=== PATIENT | female | born 1955 | race African-American/Black ===

== ENCOUNTER 2018-07-08 23:07 | Emergency (ER) | payer OTHER ==
[2018-07-08] MEDS ORDERED: ONDANSETRON HCL INJ/PF 4 MG/2 ML SDV IV ONE (23:32)
[2018-07-09 00:58] LABS: ABSOLUTE BASOPHILS # (AUTO) 0.1 10^3/uL (0.0-0.2); ABSOLUTE LYMPHOCYTES (AUTO) 0.9 10^3/uL (0.5-4.7); ABSOLUTE MONOCYTES (AUTO) 0.8 10^3/uL (0.1-1.4); ABSOLUTE NEUT (AUTO) 8.7 10^3/uL (1.7-8.2); BASOPHILS % (AUTO) 0.6 % (0-2); EOSINOPHILS % (AUTO) 0.2 % (0-6); HEMATOCRIT 25.7 % (36.0-47.0); HEMOGLOBIN 8.3 g/dL (12.0-15.5); LYMPHOCYTES % (AUTO) 8.7 % (13-45); MEAN CORPUSCULAR HGB CONC 32.1 g/dL (32.0-36.0); MEAN CORPUSCULAR VOLUME 84 fl (80-97); MONOCYTES % (AUTO) 7.9 % (3-13); PLATELET COUNT 510 10^3/uL (150-450); RED BLOOD COUNT 3.05 10^6/uL (3.72-5.28); SEGMENTED NEUTROPHILS % (AUTO) 82.6 % (42-78); TOTAL CELLS COUNTED % (AUTO) 100 %; WHITE BLOOD COUNT 10.5 10^3/uL (4.0-10.5)
[2018-07-09 01:20] LABS: ALANINE AMINOTRANSFERASE 27 U/L (9-52); ALBUMIN 3.7 g/dL (3.5-5.0); ALKALINE PHOSPHATASE 72 U/L (38-126); ANION GAP 17 (5-19); ASPARTATE AMINO TRANSFERASE 65 U/L (14-36); BILIRUBIN,DIRECT 0.3 mg/dL (0.0-0.4); BILIRUBIN,TOTAL 0.5 mg/dL (0.2-1.3); BLOOD UREA NITROGEN 12 mg/dL (7-20); CALCIUM 9.1 mg/dL (8.4-10.2); CARBON DIOXIDE 18 mmol/L (22-30); CHLORIDE 100 mmol/L (98-107); GLUCOSE 86 mg/dL (75-110); LIPASE 81.8 U/L (23-300); POTASSIUM 3.9 mmol/L (3.6-5.0); SODIUM 134.6 mmol/L (137-145)
--- NOTE | 2018-07-09 02:13 | RADIOLOGY REPORT (SQ) ---
EXAM DESCRIPTION: XR ABDOMEN SUPINE AND ERECT WITH CHEST (ABD ACUTE SERIES) COMPLETED DATE/TME: 07/09/2018 00:19 CLINICAL HISTORY: 63 years, Female, abdominal pain, vomiting COMPARISON: None. NUMBER OF VIEWS: TECHNIQUE: LIMITATIONS: None. FINDINGS: No evidence of bowel obstruction. No free air. There are multiple calcified phleboliths in the pelvis. The chest is unremarkable. IMPRESSION: No acute finding. copyright 2010 [employer]- All Rights Reserved
--- NOTE | 2018-07-09 02:36 | RADIOLOGY REPORT (SQ) ---
EXAM DESCRIPTION: CT ABDOMEN PELVIS WITH IV CONTRAST COMPLETED DATE/TME: 07/08/2018 23:32 CLINICAL HISTORY: 63 years Female, general pain, distention Comparison: None. Technique: IV contrast. Coronal and sagittal reformat. This exam was performed according to our departmental dose-optimization program, which includes automated exposure control, adjustment of the mA and/or kV according to patient size and/or use of iterative reconstruction technique. [facility]: Dose Right [facility]: CareDose [facility]: Dose Right [facility]: Teradose 4D [facility]: Pure Software LIMITATIONS: None Findings: 6.8 x 5.9 x 5.0 cm complex solid mass/collection of the right paracentral pelvis. 6.4 x 5.0 x 3.5 cm left paracentral pelvic cystic mass. 2.4 cm cystic mass at the superior aspect of the left paracentral urinary bladder wall. Severe diffuse sigmoid bowel wall thickening, Moderate ascites. Moderate inguinal lymphadenopathy is moderate on the right and mild on the left. Mild retroperitoneal lymphadenopathy. Indeterminate 3.3 cm right posterior hepatic lesion. Colonic diverticulosis. Multiple ventral midline hernia including a 6.7 cm supraumbilical hernia including bowel and ascites as well as a 4.7 cm periumbilical hernia including large bowel. No dilated bowel loops. Cholecystectomy. Uterus not discerned which may indicate prior hysterectomy. Inferior thorax, pancreas, spleen, adrenals, renal system, vasculature, and musculoskeleton appear otherwise unremarkable. IMPRESSION: 1. Multiple pelvic masses measuring up to 7.0 cm each, severe diffuse sigmoid bowel wall thickening, 3.3 cm right hepatic lesion, moderate ascites, moderate inguinal lymphadenopathy, and moderate retroperitoneal lymphadenopathy. Malignancy is of first consideration. 2. Multiple ventral bowel hernia. No dilated bowel.
--- NOTE | 2018-07-09 03:03 | ER Document Report ---
ED General - General TRAVEL OUTSIDE OF THE [place]. IN LAST 30 DAYS: No <MARILEE SUAREZ - Last Filed: 07/09/18 05:52> <CARSON GARZA - Last Filed: 07/09/18 13:10> - General Chief Complaint: Vomiting Stated Complaint: VOMITING Time Seen by Provider: 07/08/18 23:31 Notes: Patient 63-year-old female presents with complaint of abdominal distention and vomiting. Said it has been worsening over the last several days and today she was unable to hold down food or liquids and therefore came to the ER. She has history of ovarian cancer. She denies any blood in her stool. She denies previous history of ascites. She had surgeries over a year ago. She had chemotherapy and last chemotherapy was in August of last year. No other complaints at this time. (MARILEE SUAREZ) - Related Data Allergies/Adverse Reactions: No Known Allergies Allergy (Unverified 07/09/18 08:30) Past Medical History - Social History Smoking Status: Never Smoker Chew tobacco use (# tins/day): No Frequency of alcohol use: None Drug Abuse: None Family History: Reviewed & Not Pertinent Patient has suicidal ideation: No Patient has homicidal ideation: No Renal/ Medical History: Denies: Hx Peritoneal Dialysis Past Surgical History: Reports: Hx Breast Surgery - R lumpectomy, Hx Hysterectomy <MARILEE SUAREZ - Last Filed: 07/09/18 05:52> Review of Systems <MARILEE SUAREZ - Last Filed: 07/09/18 05:52> - Review of Systems Notes: My Normal Review Basic REVIEW OF SYSTEMS: CONSTITUTIONAL : Denies fever, chills, or sweats. Denies recent illness. RESPIRATORY: Denies cough, cold, or chest congestion. Denies shortness of breath, difficulty breathing, or wheezing. GASTROINTESTINAL: Abdominal pain. vomiting. GENITOURINARY: Denies difficulty urinating, painful urination, burning, frequency, or blood in urine. FEMALE GENITOURINARY: Denies vaginal bleeding, abnormal or irregular periods. LMP: Previous hysterectomy MUSCULOSKELETAL: Denies neck or back pain or joint pain or swelling. SKIN: Denies rash or skin lesions. NEUROLOGICAL: Denies altered mental status or loss of consciousness. Denies headache. Denies weakness or paralysis or loss of use of either side. Denies problems with gait or speech. Denies sensory or motor loss. ALL OTHER SYSTEMS REVIEWED AND NEGATIVE. (MARILEE SUAREZ) Physical Exam <MARILEE SUAREZ - Last Filed: 07/09/18 05:52> - Vital signs Vitals: Temp Pulse Resp BP Pulse Ox 98.4 F 133 H 18 119/70 97 07/08/18 23:32 07/08/18 23:32 07/08/18 23:32 07/08/18 23:32 07/08/18 23:32 - Notes Notes: General Appearance: Well nourished, alert, cooperative, no acute distress, no obvious discomfort. Vitals: reviewed, See vital signs table. Head: no swelling or tenderness to the head Eyes: PERRL, EOMI, Conjuctiva clear Mouth: No decreasd moisture Lungs: No wheezing, No rales, No rhonci, No accessory muscle use, good air exchange bilaterally. Heart: Normal rate, Regular rythm, No murmur, no rub Abdomen: Normal BS, soft, No rigidity, obviously very distended abdomen. Mild pain to palpation diffusely. No guarding. Extremities: strength 5/5 in all extremities, good pulses in all extremities, no swelling or tenderness in the extremities, no edema. Skin: warm, dry, appropriate color, no rash Neuro: speech clear, oriented x 3, normal affect, responds appropriately to questions. (MARILEE SUAREZ) Course - Laboratory Result Diagrams: 07/09/18 00:40 07/09/18 00:40 <MARILEE SUAREZ - Last Filed: 07/09/18 05:52> - Laboratory Result Diagrams: 07/09/18 00:40 07/09/18 00:40 <CARSON GARZA - Last Filed: 07/09/18 13:10> - Re-evaluation Re-evalutation: 07/09/18 03:[address] scan shows severe diffuse sigmoid bowel wall thickening. Does have some acidosis on chemistry panel therefore ordered lactic acid. She does have multiple large pelvic masses. She does not read as her having a bowel obstruction however she still very dilated has had intractable vomiting therefore I think that important I discussed this with her surgical oncologist. I have called [facility] and I am waiting to hear back from whoever is covering for surgical oncology. 07/09/18 04:[address] I [address] speak with [address]. Neely at [facility]. She is familiar with the patient. I did go over the CT scan findings. She says that this is likely all related to the ascites from her cancer. She recommends paracentesis. That the patient is able to eat and drink and she is feeling improved after paracentesis and she can be discharged home with follow-up with him in the office. She says the patient still feels unwell and is unable to eat and drink after paracentesis in the call them back and they will place her on a wait list for transfer. Dr. Neely says the inflammation with the sigmoid colon is related to the chemotherapy. She said this is not a new finding. 07/09/18 04:39 07/09/18 05:00 I did speak with Omid, agency sales management assistant, who said they would perform the paracentesis in the morning. 07/09/18 05:52 Patient did vomit. She vomited a large amount of yellowish gastric acid. Patient says she is now feeling better from a nausea standpoint being that she vomited. (MARILEE SUAREZ) 07/09/18 13:09 Discussed patient's case with [place] at the paracentesis patient stating feeling much better and wishes to go home. Laboratory results not show any signs of SBP. Dr. Neely at [facility] agrees. Will send patient home with Zofran and Phenergan. Slightly tachycardic still however both patient and Dr. Hutton states this is normal. Patient is able tolerate p.o. prior to dischargel (CARSON GARZA) - Vital Signs Vital signs: Temp Pulse Resp BP Pulse Ox 98.2 F 119 H 17 130/71 H 99 07/09/18 03:41 07/09/18 03:41 07/09/18 10:42 07/09/18 10:42 07/09/18 10:42 - Laboratory Laboratory results interpreted by me: 07/09/18 07/09/18 00:40 00:40 RBC 3.05 L Hgb 8.3 L Hct 25.7 L RDW 18.0 H Plt Count 510 H Seg Neutrophils % 82.6 H Lymphocytes % 8.7 L Absolute Neutrophils 8.7 H Sodium 134.6 L Carbon Dioxide 18 L AST 65 H Discharge <MARILEE SUAREZ - Last Filed: 07/09/18 05:52> <CARSON GARZA - Last Filed: 07/09/18 13:10> - Discharge Clinical Impression: Abdominal pain Qualifiers: Abdominal location: unspecified location Qualified Code(s): R10.9 - Unspecified abdominal pain Vomiting Qualifiers: Vomiting type: unspecified Vomiting Intractability: intractable Nausea presence: with nausea Qualified Code(s): R11.2 - Nausea with vomiting, unspecified Ascites Qualifiers: Ascites type: malignant Qualified Code(s): R18.0 - Malignant ascites Instructions: Vomiting ([facility]) Additional Instructions: I discussed your results with your physician at [place] at this time I do feel that you are safe to be discharged home please return to ER for any worsening of your symptoms he can take either the Zofran or the Phenergan as needed for nausea and vomiting. If you feel yourself getting constipated I would recommend using [id number] MiraLAX or stool softener Prescriptions: Ondansetron [Zofran Odt 4 mg Tablet] 1 - 2 tab PO Q4H PRN #30 tab.rapdis PRN Reason: For Nausea/Vomiting Promethazine HCl [Phenergan 25 mg Tablet] 25 mg PO Q6 #30 tablet
[2018-07-09] MEDS ORDERED: ONDANSETRON HCL INJ/PF 4 MG/2 ML SDV IV ONE (03:26)
[2018-07-09] MEDS ORDERED: NORMAL SALINE 1000 ML 1,000 ML IV ONE (03:28)
[2018-07-09 03:39] LABS: INTERNATIONAL RATION (INR) 1.06; PARTIAL THROMBOPLASTIN TIME 34.4 SEC (23.5-35.8); PROTHROMBIN TIME 14.3 SEC (11.4-15.4)
[2018-07-09] MEDS ORDERED: RINGERS SOLUTION,LACTATED 1,000 ML IV ONE (05:53)
--- NOTE | 2018-07-09 10:58 | RADIOLOGY REPORT (SQ) ---
EXAM DESCRIPTION: U/S ABD PARACENTESIS COMPLETED DATE/TIME: 07/09/2018 10:41 am REASON FOR STUDY: ascites COMPARISON CT abdomen and pelvis dated 07/09/2018 LIMITATIONS: None. PROCEDURE: After obtaining informed consent, the patient was brought to the ultrasound suite. The p rocedure was performed with the patient on a gurney. Ultrasound was used to identify a prominent poc ket of ascites in the left lower quadrant. An appropriate access site was selected. The patient was prepped and draped in usual sterile fashion. The access site was anesthetized with 10 mL 1% lidoca ine. A [id number]-Rfujamxa needle was advanced into the fluid. After aspiration of fluid the needle, th e catheter was advanced off the needle into the fluid. A total of 4,450 mL of clear, straw-colored f luid was removed. The patient tolerated the procedure well left the department in satisfactory condit ion. IMPRESSION: Successful ultrasound-guided paracentesis COMMENT: Patient medication list reviewed: Yes- Quality ID# [id number]:Eligible professional attests to doc umenting in the medical record they obtained, updated, or reviewed the patient's current medications. TECHNICAL DOCUMENTATION: JOB ID: [id number] [employer] All Rights Reserved Reading location - IP/workstation name: [email or web address]
[2018-07-09 11:20] LABS: FLUID COLOR YELLOW; FLUID TYPE PERITONEAL
[2018-07-09 11:21] LABS: FLUID APPEARANCE SLIGHTLY HAZY; FLUID VISCOSITY LIQUID
[2018-07-09 11:37] LABS: FLUID SOURCE ABDOMEN
[2018-07-09] MEDS ORDERED: ONDANSETRON ODT 4 MG TAB (6 TAB/ER DISP) PO PRN (12:53)
[2018-07-09 13:25] VITALS: BP 130/67
== END 2018-07-09 13:24 | disposition home or self-care (01) ==
LOC: ER 23:07
DX: R10.9 Unspecified abdominal pain (principal); R11.10 Vomiting, unspecified; R14.0 Abdominal distension (gaseous); R18.0 Malignant ascites; Z90.710 Acquired absence of both cervix and uterus
CPT/HCPCS: 96376; 99284; 96361; 96374; 36415; 83605; 83690; 85025; 85610; 85730; 89050; 80053; 88162; 88342 ×2; 88341 ×2; 88305 ×2; 88313 ×2; 74022; 49083; 74177; J2405; J7030; J7120

== ENCOUNTER 2018-07-29 05:58 | Emergency (ER) | payer OTHER ==
--- NOTE | 2018-07-29 07:24 | ER Document Report ---
ED General - General Chief Complaint: Abdominal Swelling Stated Complaint: ABDOMINAL PAIN Time Seen by Provider: 07/29/18 06:22 TRAVEL OUTSIDE OF THE [place] IN LAST 30 DAYS: No - HPI Notes: Patient is a 63-year-old female that presents to the emergency department for chief complaint of abdominal distention and pain. Patient has ovarian cancer and has recently been requiring paracentesis for ascites. She states that her last paracentesis was on 07/15/18 and they drained 1.5 L. She states since then she has had increasing abdominal pain and distention. She states is not as bad as the first time she had 4 L drained off. She reports some dyspnea with exertion but at rest she feels she is breathing normally. She denies any fever, chills, nausea, vomiting or diarrhea. She states that the pain in her abdomen is a tightness that is constant without aggravating or relieving factors. Patient states that her oncologist told her she will require further paracentesis but she was not sure how to go about getting that set up which is why she came in the emergency room today. Past Medical History: Ovarian cancer Past Surgical History: Hysterectomy, lumpectomy Social History: Denies tobacco and alcohol use Family History: Reviewed and noncontributory for presenting illness Allergies: Reviewed, see documented allergy list. REVIEW OF SYSTEMS: CONSTITUTIONAL : No fever No chills No diaphoresis No recent illness EENT: No vision changes No congestion No sore throat CARDIOVASCULAR: No chest pain No palpitations RESPIRATORY: No shortness of breath No cough No difficulty breathing GASTROINTESTINAL: abdominal pain No nausea No vomiting No diarrhea GENITOURINARY: No dysuria No hematuria No difficulty urinating MUSCULOSKELETAL: No back pain No leg pain No arm pain SKIN: No rashes No lesions LYMPHATIC: No swollen, enlarged glands. NEUROLOGICAL: No lightheadedness No headache No weakness No paresthesias PSYCHIATRIC: No anxiety No depression PHYSICAL EXAMINATION: Vital signs reviewed, nursing noted reviewed. GENERAL: Well-appearing, well-nourished and in no acute distress. HEAD: Atraumatic, normocephalic. EYES: Eyes appear normal, extraocular movements intact, sclera anicteric, conjunctiva are normal. ENT: nares patent, oropharynx clear without exudates. Moist mucous membranes. NECK: Normal range of motion, supple without lymphadenopathy LUNGS: Breath sounds clear to auscultation bilaterally and equal. No wheezes rales or rhonchi. HEART: Regular rate and rhythm without murmurs ABDOMEN: Distended, positive fluid wave, soft, mild diffuse tenderness, normoactive bowel sounds. No rebound, guarding, or rigidity. No masses appreciated. EXTREMITIES: Nontender, good range of motion, no pitting or edema. NEUROLOGICAL: No focal neurological deficits. Moves all extremities spontaneously Motor and sensory grossly intact on exam. PSYCH: Normal mood, normal affect. SKIN: Warm, Dry, normal turgor, no rashes or lesions noted on exposed skin - Related Data Allergies/Adverse Reactions: No Known Allergies Allergy (Unverified 07/09/18 08:30) Past Medical History - Social History Smoking Status: Unknown if Ever Smoked Family History: Reviewed & Not Pertinent Patient has suicidal ideation: No Patient has homicidal ideation: No Renal/ Medical History: Denies: Hx Peritoneal Dialysis Past Surgical History: Reports: Hx Breast Surgery - R lumpectomy, Hx Hysterectomy Physical Exam - Vital signs Vitals: Temp Pulse Resp BP Pulse Ox 97.9 F 133 H 16 133/74 H 96 07/29/18 06:03 07/29/18 06:03 07/29/18 06:03 07/29/18 06:03 07/29/18 06:03 Course - Re-evaluation Re-evalutation: 07/29/18 07:24 Vitals reviewed. Nursing notes reviewed. Patient is resting comfortably and in no acute respiratory distress. She does have a moderate amount of abdominal distention consistent with her ascites from ovarian cancer. Patient has refused blood draw from nursing staff which is delaying her management. She is requesting only ultrasound blood draws. 07/29/18 11:35 Patient's lab work was finally resulted. She has a hemoglobin of 7.9. Chart review shows hemoglobin of 8.3 last month. Patient's care was discussed with Celina Lama NP working with patient's oncologist Dr. Susanna Monterroso at [facility]. They do recommend transfusing 2 units packed red blood cells. They agree with paracentesis today and discharge home. She has an appointment scheduled with them on Sunday which she will keep. Celina edwards states they will work on getting a more routine schedule for paracentesis and they will be having a palliative care consultation at that time as well. Patient is in agreement with plan of care. She is currently at ultrasound getting paracentesis. Plan to transfuse when she returns to the emergency room and discharge home if she Laboratory 07/29/18 07/29/18 07/29/18 07:56 07:56 07:56 WBC Cancelled RBC Cancelled Hgb Cancelled Hct Cancelled MCV Cancelled MCH Cancelled MCHC Cancelled RDW Cancelled Plt Count Cancelled Seg Neutrophils % Cancelled Lymphocytes % Cancelled Monocytes % Cancelled Eosinophils % Cancelled Basophils % Cancelled Absolute Neutrophils Cancelled Absolute Lymphocytes Cancelled Absolute Monocytes Cancelled Absolute Eosinophils Cancelled Absolute Basophils Cancelled Platelet Estimate Cancelled PT 13.7 INR 1.00 APTT 33.6 Sodium 138.4 Potassium 4.3 Chloride 109 H Carbon Dioxide 23 Anion Gap 6 BUN 10 Creatinine 0.75 Est GFR ( Amer) > 60 Est GFR (Non-Af Amer) > 60 Glucose 100 Calcium 9.1 Total Bilirubin 0.5 Direct Bilirubin 0.3 Neonat Total Bilirubin Not Reportable Neonat Direct Bilirubin Not Reportable Neonat Indirect Bili Not Reportable AST 38 H ALT 23 Alkaline Phosphatase 82 Total Protein 6.0 L Albumin 3.1 L Lipase 93.0 Slides for Path Review Cancelled 07/29/18 10:44 WBC 7.0 RBC 3.10 L Hgb 7.9 L Hct 24.8 L MCV 80 D MCH 25.3 L MCHC 31.7 L RDW 19.6 H Plt Count 368 Seg Neutrophils % 75.6 Lymphocytes % 16.0 Monocytes % 7.2 Eosinophils % 0.4 Basophils % 0.8 Absolute Neutrophils 5.3 Absolute Lymphocytes 1.1 Absolute Monocytes 0.5 Absolute Eosinophils 0.0 Absolute Basophils 0.1 Platelet Estimate PT INR APTT Sodium Potassium Chloride Carbon Dioxide Anion Gap BUN Creatinine Est GFR ( Amer) Est GFR (Non-Af Amer) Glucose Calcium Total Bilirubin Direct Bilirubin Neonat Total Bilirubin Neonat Direct Bilirubin Neonat Indirect Bili AST ALT Alkaline Phosphatase Total Protein Albumin Lipase Slides for Path Review Chest X-Ray 07/29/18 06:23 IMPRESSION: No acute cardiopulmonary findings. remains stable - Vital Signs Vital signs: Temp Pulse Resp BP Pulse Ox 97.9 F 133 H 21 H 120/52 L 96 07/29/18 06:03 07/29/18 06:03 07/29/18 09:20 07/29/18 09:08 07/29/18 09:20 - Laboratory Result Diagrams: 07/29/18 10:44 07/29/18 07:56 Laboratory results interpreted by me: 07/29/18 07/29/18 07:56 10:44 RBC 3.10 L Hgb 7.9 L Hct 24.8 L MCH 25.3 L MCHC 31.7 L RDW 19.6 H Chloride 109 H AST 38 H Total Protein 6.0 L Albumin 3.1 L Discharge - Discharge Clinical Impression: Anemia Qualifiers: Anemia type: other cause Other causes of anemia: other cause, not classified Qualified Code(s): D64.89 - Other specified anemias Ascites Qualifiers: Ascites type: malignant Qualified Code(s): R18.0 - Malignant ascites Condition: Stable Disposition: HOME, SELF-CARE Instructions: Anemia ([facility]) Additional Instructions: Please return to the emergency department if you have any worsening, or concern of your symptoms. Please return to the emergency department if you develop chest pain, difficulty breathing, severe abdominal pain, or ongoing vomiting. Please follow-up with your primary care physician in 2-3 days and any other recommended physicians. If prescribed, take all medications as directed. If you have any questions or concerns do not hesitate to return the emergency department for evaluation. Keep your appointment on Sunday with Dr. Monterroso. I did discuss her care today with her nurse practitioner and they are aware of your blood transfusion and paracentesis.
--- NOTE | 2018-07-29 07:32 | RADIOLOGY REPORT (SQ) ---
EXAM DESCRIPTION: XR CHEST 1 VIEW COMPLETED DATE/TME: 07/29/2018 06:23 CLINICAL HISTORY: 63 years Female, shortness of breath COMPARISON: None. NUMBER OF VIEWS/TECHNIQUE: 1/AP FINDINGS: Adequate lung volume, clear parenchyma, normal cardiac silhouette, and intact bony thorax. Right lateral thoracic/breast clips. IMPRESSION: No acute cardiopulmonary findings.
[2018-07-29 08:49] LABS: ALANINE AMINOTRANSFERASE 23 U/L (9-52); ALBUMIN 3.1 g/dL (3.5-5.0); ALKALINE PHOSPHATASE 82 U/L (38-126); ANION GAP 6 (5-19); ASPARTATE AMINO TRANSFERASE 38 U/L (14-36); BILIRUBIN,DIRECT 0.3 mg/dL (0.0-0.4); BILIRUBIN,TOTAL 0.5 mg/dL (0.2-1.3); BLOOD UREA NITROGEN 10 mg/dL (7-20); CALCIUM 9.1 mg/dL (8.4-10.2); CARBON DIOXIDE 23 mmol/L (22-30); CHLORIDE 109 mmol/L (98-107); GLUCOSE 100 mg/dL (75-110); POTASSIUM 4.3 mmol/L (3.6-5.0); SODIUM 138.4 mmol/L (137-145)
[2018-07-29 09:05] LABS: PROTHROMBIN TIME 13.7 SEC (11.4-15.4)
[2018-07-29 09:06] LABS: PARTIAL THROMBOPLASTIN TIME 33.6 SEC (23.5-35.8)
[2018-07-29 11:01] LABS: ABSOLUTE BASOPHILS # (AUTO) 0.1 10^3/uL (0.0-0.2); ABSOLUTE LYMPHOCYTES (AUTO) 1.1 10^3/uL (0.5-4.7); ABSOLUTE MONOCYTES (AUTO) 0.5 10^3/uL (0.1-1.4); ABSOLUTE NEUT (AUTO) 5.3 10^3/uL (1.7-8.2); BASOPHILS % (AUTO) 0.8 % (0-2); EOSINOPHILS % (AUTO) 0.4 % (0-6); HEMATOCRIT 24.8 % (36.0-47.0); MEAN CORPUSCULAR HEMOGLOBIN 25.3 pg (27.0-33.4); MEAN CORPUSCULAR HGB CONC 31.7 g/dL (32.0-36.0); MONOCYTES % (AUTO) 7.2 % (3-13); PLATELET COUNT 368 10^3/uL (150-450); RED CELL DISTRIBUTION WIDTH 19.6 % (11.5-14.0); SEGMENTED NEUTROPHILS % (AUTO) 75.6 % (42-78); TOTAL CELLS COUNTED % (AUTO) 100 %
[2018-07-29 11:06] LABS: MEAN CORPUSCULAR VOLUME 80 fl (80-97)
[2018-07-29 11:07] LABS: HEMOGLOBIN 7.9 g/dL (12.0-15.5)
[2018-07-29] MEDS ORDERED: NORMAL SALINE 250 ML IV PRN ×2 (11:31)
--- NOTE | 2018-07-29 15:22 | RADIOLOGY REPORT (SQ) ---
EXAM DESCRIPTION: U/S ABD PARACENTESIS COMPLETED DATE/TIME: 07/29/2018 12:49 pm REASON FOR STUDY: Ascites COMPARISON None. LIMITATIONS: None. PROCEDURE: After obtaining informed consent, the patient was brought to the ultrasound suite. The p rocedure was performed with the patient on a gurney. Ultrasound was used to identify a prominent poc ket of ascites in the left lower quadrant. An appropriate access site was selected. The patient was prepped and draped in usual sterile fashion. The access site was anesthetized with 10 mL 1% lidoca ine. A [id number] needle was advanced into the fluid. After aspiration of fluid the needle, th e catheter was advanced off the needle into the fluid. A total of 2,275 mL of serosanguineous fluid was removed. The patient tolerated the procedure well left the department in satisfactory condition. IMPRESSION: Successful ultrasound-guided paracentesis COMMENT: Patient medication list reviewed: Yes- Quality ID# [id number]:Eligible professional attests to doc umenting in the medical record they obtained, updated, or reviewed the patient's current medications. TECHNICAL DOCUMENTATION: JOB ID: [id number] [employer]- All Rights Reserved Reading location - IP/workstation name: [email or web address]
--- NOTE | 2018-07-29 20:04 | EKG REPORT ---
SEVERITY:- OTHERWISE NORMAL ECG - SINUS TACHYCARDIA : Confirmed by: Soledad Teixeira MD 29-Jul-2018 20:03:30
[2018-07-29 21:03] VITALS: BP 124/86
== END 2018-07-29 21:03 | disposition home or self-care (01) ==
LOC: ER 05:58
DX: R18.0 Malignant ascites (principal); D64.89 Other specified anemias; R10.9 Unspecified abdominal pain; C56.9 Malignant neoplasm of unspecified ovary; R06.00 Dyspnea, unspecified
CPT/HCPCS: 93005; 99284; 86900; 86901; 36415; 87040; 36430; 86850; 83690; 85025; 85610; 85730; 87077; 80053; 86920; 71045; 49083; 93010; P9016; 87186

== ENCOUNTER 2018-08-18 09:25 | Emergency (ER) | payer OTHER ==
--- NOTE | 2018-08-18 10:16 | ER Document Report ---
ED General - General Chief Complaint: Nausea/Vomiting Stated Complaint: VOMITING Time Seen by Provider: 08/18/18 09:50 Mode of Arrival: Ambulatory Information source: Patient, [facility] Records Notes: 63-year-old female patient with past history of ovarian cancer with carcinomatosis. She reports she has had nausea and vomiting for the past week. Her last good bowel movement was about 5 days ago. She did not get her chemotherapy done on 08/14/2018 due to her nausea and vomiting. Patient denies fevers. She does note that her abdomen feels like it is becoming more distended. She did speak with her provider at [facility] a few days ago, and they recommended adding milk of magnesia and prune juice to her daily MiraLAX. She did try this on Sunday, and vomited about 1 to 2 hours after drinking the juice and milk of magnesia. The patient originally presented here on 07/08/2018 and at that time stated she had never had paracentesis before. On 07/09/2018 she had 4,450 mL's removed. On 07/29/2018 she was seen again and had 2,275 mL's removed and was given 2 units of packed RBCs for worsening anemia. On 08/09/2018 she had an outpatient paracentesis done and had 2,150 mL was removed. TRAVEL OUTSIDE OF THE [place] IN LAST 30 DAYS: No - Related Data Allergies/Adverse Reactions: acetaminophen [From Vicodin] Allergy (Verified 08/18/18 09:27) hydrocodone [From Vicodin] Allergy (Verified 08/18/18 09:27) pegfilgrastim [From Neulasta] Allergy (Verified 08/18/18 09:27) silicone Allergy (Verified 08/18/18 09:27) Past Medical History - General Information source: Patient, [facility] Records - Social History Smoking Status: Never Smoker Cigarette use (# per day): No Chew tobacco use (# tins/day): No Smoking Education Provided: No Frequency of alcohol use: Rare Drug Abuse: Marijuana Occupation: Retired Lives with: Family Family History: Reviewed & Not Pertinent Patient has suicidal ideation: No Patient has homicidal ideation: No Malignancy Medical History: Reports: Hx Ovarian Cancer GI Medical History: Reports: None Past Surgical History: Reports: Hx Breast Surgery - R lumpectomy, Hx Hystere ctomy Review of Systems - Review of Systems Constitutional: No symptoms reported EENT: No symptoms reported Cardiovascular: No symptoms reported Respiratory: No symptoms reported Gastrointestinal: See HPI, Abdomen distended, Vomiting, Last bowel movement - 5 days ago. denies: Diarrhea Female Genitourinary: Post menopausal Musculoskeletal: No symptoms reported Skin: No symptoms reported Hematologic/Lymphatic: No symptoms reported Neurological/Psychological: No symptoms reported Physical Exam - Vital signs Vitals: Temp Pulse Resp BP Pulse Ox 97.5 F 132 H 24 H 120/58 L 96 08/18/18 09:35 08/18/18 09:35 08/18/18 09:35 08/18/18 09:35 08/18/18 09:35 Interpretation: Tachycardic - General General appearance: Appears well, Alert In distress: None - HEENT Head: Normocephalic, Atraumatic Eyes: Normal Pupils: PERRL Mouth/Lips: Other - Strong ketone odor on the patient's breath Neck: Normal - Respiratory Respiratory status: No respiratory distress Breath sounds: Normal - Cardiovascular Rhythm: Regular Heart sounds: Normal auscultation Murmur: No - Abdominal Distension: Distended, Fluid wave Bowel sounds: Normal Tenderness: Nontender - Back Back: Normal - Extremities General upper extremity: Normal inspection General lower extremity: Normal inspection - Neurological Neuro grossly intact: Yes - Psychological Associated symptoms: Normal affect, Normal mood - Skin Skin Temperature: Warm Skin Moisture: Dry Skin Color: Normal Course - Re-evaluation Re-evalutation: 08/18/18 14:50 Bedside ultrasound showed fluid collections in the left and right paracolic gutter regions. The left-sided collection was the largest. Patient states that is usually the left side that they get most the fluid from. Dr. Bridges did a paracentesis removing about 1,100 mL's of bloody fluid from the left abdomen. Patient states she feels much better able to breathe deeper. She will be discharged home with a bottle of mag citrate to drink to help get her bowels moving. - Vital Signs Vital signs: Temp Pulse Resp BP Pulse Ox 97.5 F 132 H 20 142/92 H 99 08/18/18 09:35 08/18/18 09:35 08/18/18 12:01 08/18/18 12:00 08/18/18 12:01 - Laboratory Result Diagrams: 08/18/18 10:30 08/18/18 10:30 Laboratory results interpreted by me: 08/18/18 08/18/18 08/18/18 10:30 10:30 12:55 Hgb 11.4 L MCV 78 L MCH 24.8 L MCHC 31.6 L RDW 19.4 H Plt Count 568 H Seg Neutrophils % 81.6 H Lymphocytes % 9.5 L Sodium 132.4 L Chloride 90 L Direct Bilirubin 0.6 H Creatine Kinase < 20 L Urine Protein 30 H Urine Ketones 80 H Urine Bilirubin SMALL H Urine Urobilinogen 4.0 H - Diagnostic Test Radiology reviewed: Image reviewed, Reports reviewed - AAS-shows ascites and stool in the colon. There is no obstruction. - Consults Dr. Bridges Time consulted: 13:00 Consulted provider: will come to ER - Will come see the patient and do an ultrasound-guided paracentesis. Discharge - Discharge Clinical Impression: Peritoneal carcinomatosis, Dehydration Ovarian cancer Qualifiers: Laterality: unspecified laterality Qualified Code(s): C56.9 - Malignant neoplasm of unspecified ovary Nausea and vomiting Qualifiers: Vomiting type: unspecified Vomiting Intractability: non-intractable Qualified Code(s): R11.2 - Nausea with vomiting, unspecified Constipation Qualifiers: Constipation type: unspecified constipation type Qualified Code(s): K59.00 - Constipation, unspecified Condition: Stable Disposition: HOME, SELF-CARE Additional Instructions: Drink the magnesium citrate when you get home. You can drink it all at once, or sip on it over the next few hours. Follow-up with your doctor if you are not improving. RETURN TO THE EMERGENCY ROOM IF ANY NEW OR WORSENING SYMPTOMS.
[2018-08-18] MEDS ORDERED: DEXTROSE 5%-LACTATED RINGERS 1,000 ML IV ONE (10:18)
[2018-08-18 10:46] LABS: ABSOLUTE LYMPHOCYTES (AUTO) 0.8 10^3/uL (0.5-4.7); ABSOLUTE MONOCYTES (AUTO) 0.8 10^3/uL (0.1-1.4); ABSOLUTE NEUT (AUTO) 7.3 10^3/uL (1.7-8.2); BASOPHILS % (AUTO) 0.1 % (0-2); EOSINOPHILS % (AUTO) 0.1 % (0-6); HEMOGLOBIN 11.4 g/dL (12.0-15.5); LYMPHOCYTES % (AUTO) 9.5 % (13-45); MEAN CORPUSCULAR HEMOGLOBIN 24.8 pg (27.0-33.4); MEAN CORPUSCULAR HGB CONC 31.6 g/dL (32.0-36.0); MEAN CORPUSCULAR VOLUME 78 fl (80-97); MONOCYTES % (AUTO) 8.7 % (3-13); PLATELET COUNT 568 10^3/uL (150-450); RED BLOOD COUNT 4.59 10^6/uL (3.72-5.28); RED CELL DISTRIBUTION WIDTH 19.4 % (11.5-14.0); SEGMENTED NEUTROPHILS % (AUTO) 81.6 % (42-78); TOTAL CELLS COUNTED % (AUTO) 100 %
--- NOTE | 2018-08-18 10:59 | RADIOLOGY REPORT (SQ) ---
EXAM DESCRIPTION: ACUTE ABDOMEN SERIES COMPLETED DATE/TIME: 08/18/2018 10:47 am REASON FOR STUDY: Nausea and vomiting, ascites, carcinomatosis COMPARISON: 07/09/2018 NUMBER OF VIEWS: Three views. TECHNIQUE: Frontal chest, supine abdomen and upright/decubitus abdomen radiographic images acquired. LIMITATIONS: None. FINDINGS: CHEST: Lungs clear of infiltrates. FREE AIR: None. No abnormal gas collections. BOWEL GAS PATTERN: Nonobstructive pattern. No dilated loops or air fluid levels. CALCIFICATIONS: No suspicious calcifications. HARDWARE: None in the abdomen. SOFT TISSUES: Generalize centralization of bowel loops strongly suspicious for ascites. BONES: No acute fracture. No worrisome bone lesions. OTHER: No other significant finding. IMPRESSION: No evidence for obstruction. Ascites. TECHNICAL DOCUMENTATION: JOB ID: [id number] [employer]- All Rights Reserved Reading location - IP/workstation name: [email or web address]
[2018-08-18 11:05] LABS: ALANINE AMINOTRANSFERASE 27 U/L (9-52); ALBUMIN 3.8 g/dL (3.5-5.0); ALKALINE PHOSPHATASE 98 U/L (38-126); ANION GAP 19 (5-19); ASPARTATE AMINO TRANSFERASE 31 U/L (14-36); BILIRUBIN,DIRECT 0.6 mg/dL (0.0-0.4); BILIRUBIN,TOTAL 0.8 mg/dL (0.2-1.3); BLOOD UREA NITROGEN 16 mg/dL (7-20); CALCIUM 9.9 mg/dL (8.4-10.2); CARBON DIOXIDE 23 mmol/L (22-30); CHLORIDE 90 mmol/L (98-107); GLUCOSE 89 mg/dL (75-110); POTASSIUM 4.3 mmol/L (3.6-5.0); SODIUM 132.4 mmol/L (137-145); TOTAL PROTEIN 6.9 g/dL (6.3-8.2)
[2018-08-18 11:07] LABS: CREATINE KINASE < 20 U/L (30-135)
[2018-08-18 13:21] LABS: APPEARANCE,URINE SLIGHTLY-CLOUDY; BILIRUBIN,URINE SMALL (NEGATIVE); GLUCOSE, URINE NEGATIVE (NEGATIVE); KETONES,URINE 80 mg/dL (NEGATIVE); LEUKOCYTE ESTERASE,URINE NEGATIVE (NEGATIVE); NITRITE,URINE NEGATIVE (NEGATIVE); PROTEIN,URINE 30 mg/dL (NEGATIVE)
[2018-08-18 13:23] LABS: COLOR,URINE YELLOW
[2018-08-18] MEDS ORDERED: MAGNESIUM CITRATE 296 ML BOTTLE PO ONE (14:54)
--- NOTE | 2018-08-18 15:08 | PDOC CONSULTATION ---
Consultation Consult Date: 08/18/18 Consult reason:: Ovarian cancer, malignant ascites. History of Present Illness History of Present Illness: JUICE PEREIRA is a 63 year old female seen in consultation at the request of the emergency room physician. Patient has a history of ovarian cancer with malignant ascites. The patient has undergone paracentesis approximately 4 times in the past. On average, they remove approximately 2 L of fluid each time. The patient reports a 2 to 3-day history of abdominal swelling, nausea, vomiting, and malaise. The patient vomited several times. She does find it difficult to take a large breath. Nothing makes her pain and nausea better. Nothing makes it worse. Past Medical History Cardiac Medical History: Denies: Myocardial Infarction, Hypertension Pulmonary Medical History: Denies: Asthma, Bronchitis, Chronic Obstructive Pulmonary Disease (COPD), Pneumonia Neurological Medical History: Denies: Seizures Malignancy Medical History: Reports: Ovarian Cancer GI Medical History: Reports: None Musculoskeltal Medical History: Denies: Arthritis Hematology: Reports: Anemia - 2 UNITS ON 07/29/18 Past Surgical History Past Surgical History: Reports: Hysterectomy, Other - Paracentesis Social History Lives with: Family Smoking Status: Never Smoker Family History Family History: Reviewed & Not Pertinent Parental Family History Reviewed: Yes Children Family History Reviewed: Yes Sibling(s) Family History Reviewed.: Yes Medication/Allergy Home Medications: No Home Medications 08/09/18 Allergies/Adverse Reactions: acetaminophen [From Vicodin] Allergy (Verified 08/18/18 09:27) hydrocodone [From Vicodin] Allergy (Verified 08/18/18 09:27) pegfilgrastim [From Neulasta] Allergy (Verified 08/18/18 09:27) silicone Allergy (Verified 08/18/18 09:27) Review of Systems Constitutional: PRESENT: anorexia, fatigue. ABSENT: chills, fever(s), weakness Eyes: ABSENT: visual disturbances Ears: ABSENT: hearing changes Nose, Mouth, and Throat: ABSENT: mouth pain, sore throat Cardiovascular: ABSENT: chest pain Respiratory: ABSENT: cough Gastrointestinal: PRESENT: abdominal pain, bloating, nausea, vomiting Genitourinary: ABSENT: dysuria Musculoskeletal: ABSENT: back pain Integumentary: ABSENT: pruritus, rash Neurological: ABSENT: confusion, convulsions Psychiatric: ABSENT: anxiety, depression Hematologic/Lymphatic: ABSENT: easy bleeding, easy bruising Physical Exam Vital Signs: Temp Pulse Resp BP Pulse Ox 97.5 F 132 H 20 142/92 H 99 08/18/18 09:35 08/18/18 09:35 08/18/18 12:01 08/18/18 12:00 08/18/18 12:01 Intake & Output 08/17/18 08/18/18 08/19/18 06:59 06:59 06:59 Weight 68.7 kg General appearance: PRESENT: cooperative Head exam: PRESENT: atraumatic, normocephalic Eye exam: PRESENT: EOMI, PERRLA. ABSENT: scleral icterus Mouth exam: PRESENT: moist, neck supple Teeth exam: ABSENT: poor dentation Neck exam: ABSENT: meningismus, tenderness, thyromegaly, tracheal deviation Respiratory exam: PRESENT: clear to auscultation nicolas, unlabored. ABSENT: chest wall tenderness, tachypnea, wheezes Cardiovascular exam: PRESENT: RRR Pulses: PRESENT: normal radial pulses Vascular exam: PRESENT: normal capillary refill GI/Abdominal exam: PRESENT: distended, soft. ABSENT: guarding, rigid, tenderness Rectal exam: PRESENT: deferred Extremities exam: ABSENT: clubbing Musculoskeletal exam: ABSENT: deformity Neurological exam: PRESENT: alert, awake, oriented to person, oriented to place, oriented to time, oriented to situation, CN II-XII grossly intact Psychiatric exam: ABSENT: agitated, anxious, depressed Focused psych exam: ABSENT: delusional Skin exam: ABSENT: cyanosis, erythema, jaundice Results Laboratory Results: 08/18/18 10:30 08/18/18 10:30 08/18/18 08/18/18 08/18/18 10:30 10:30 10:30 WBC 9.0 RBC 4.59 Hgb 11.4 L Hct 36.0 MCV 78 L MCH 24.8 L MCHC 31.6 L RDW 19.4 H Plt Count 568 H Seg Neutrophils % 81.6 H Lymphocytes % 9.5 L Monocytes % 8.7 Eosinophils % 0.1 Basophils % 0.1 Absolute Neutrophils 7.3 Absolute Lymphocytes 0.8 Absolute Monocytes 0.8 Absolute Eosinophils 0.0 Absolute Basophils 0.0 Sodium 132.4 L Potassium 4.3 Chloride 90 L Carbon Dioxide 23 Anion Gap 19 BUN 16 Creatinine 0.81 Est GFR ( Amer) > 60 Est GFR (Non-Af Amer) > 60 Glucose 89 Lactic Acid 1.2 Calcium 9.9 Magnesium 2.0 Total Bilirubin 0.8 AST 31 ALT 27 Alkaline Phosphatase 98 Total Protein 6.9 Albumin 3.8 Urine Color Urine Appearance Urine pH Ur Specific [place] Urine Protein Urine Glucose (UA) Urine Ketones Urine Blood Urine Nitrite Ur Leukocyte Esterase Urine WBC (Auto) Urine RBC (Auto) 08/18/18 12:55 WBC RBC Hgb Hct MCV MCH MCHC RDW Plt Count Seg Neutrophils % Lymphocytes % Monocytes % Eosinophils % Basophils % Absolute Neutrophils Absolute Lymphocytes Absolute Monocytes Absolute Eosinophils Absolute Basophils Sodium Potassium Chloride Carbon Dioxide Anion Gap BUN Creatinine Est GFR ( Amer) Est GFR (Non-Af Amer) Glucose Lactic Acid Calcium Magnesium Total Bilirubin AST ALT Alkaline Phosphatase Total Protein Albumin Urine Color YELLOW Urine Appearance SLIGHTLY-CLOUDY Urine pH 5.0 Ur Specific [place] 1.030 Urine Protein 30 H Urine Glucose (UA) NEGATIVE Urine Ketones 80 H Urine Blood NEGATIVE Urine Nitrite NEGATIVE Ur Leukocyte Esterase NEGATIVE Urine WBC (Auto) 5 Urine RBC (Auto) 34 08/18/18 08/18/18 10:30 10:30 Creatine Kinase < 20 L Troponin I < 0.012 Impressions: Acute Abdomen Series 08/18/18 10:09 IMPRESSION: No evidence for obstruction. Ascites. Assessment & Plan - Diagnosis (2) Ovarian cancer Qualifiers: Laterality: unspecified laterality Qualified Code(s): C56.9 - Malignant neoplasm of unspecified ovary Is this a current diagnosis for this admission?: Yes - Plan Summary Plan Summary: This is a 63-year-old female with malignant ascites due to ovarian cancer. The patient reports a several day history of increasing abdominal girth, nausea, vomiting, and a feeling of fullness. I have reviewed her abdominal x-rays and laboratory reports. She has no sign of obvious obstruction. She does have some stool in the right colon, consistent with constipation. The patient has experienced symptoms like this before. She has had paracentesis performed 4 times in the past, with good results. The patient is requesting paracentesis today at the bedside to help relieve her symptoms. I have agreed to this. Risks/benefits discussed, informed consent obtained, and all questions answered.
--- NOTE | 2018-08-18 15:12 | Operative Report ---
Nonrecallable Operative Report DATE OF SURGERY: 08/18/18 PREOPERATIVE DIAGNOSIS: Malignant ascites POSTOPERATIVE DIAGNOSIS: Same as above OPERATION: Ultrasound-guided paracentesis in the left abdomen SURGEON: IRMA MOULTON ANESTHESIA: Local TISSUE REMOVED OR ALTERED: 1.1 L of blood-tinged ascites COMPLICATIONS: None apparent ESTIMATED BLOOD LOSS: Minimal PROCEDURE: Drains/implants: None. Procedure in detail: After informed consent was obtained from the patient, she was sat in the upright position in the emergency department. The abdomen was then inspected with an ultrasound. The ascites appeared to be contained within the left lateral abdomen. Secondary to this, the left abdominal wall was prepped and draped in a normal sterile fashion. 1% lidocaine was used to infiltrate the skin of the left lateral abdominal wall. Under direct ultrasonic guidance, the Veress needle was inserted into the abdominal cavity. The catheter was slid over the needle, into the peritoneal space. Blood-tinged ascites was then removed from the abdomen. After 1.1 L were removed, no other ascites could be aspirated. The ultrasound was used to confirm that there was no more fluid within the abdominal cavity. Once this was completed, the catheter was removed, a dressing was placed, and the procedure was concluded. All sponge, instrument, and needle counts were correct. Condition: Stable.
[2018-08-18 15:31] VITALS: BP 141/95
== END 2018-08-18 15:45 | disposition home or self-care (01) ==
LOC: ER 09:25
PROC: 0W9G3ZZ Drainage of Peritoneal Cavity, Percutaneous Approach (ICD-10-PCS; principal; 2018-08-18)
DX: C80.0 Disseminated malignant neoplasm, unspecified (principal); C56.9 Malignant neoplasm of unspecified ovary; E86.0 Dehydration; R11.2 Nausea with vomiting, unspecified; K59.00 Constipation, unspecified; Z79.899 Other long term (current) drug therapy; Z98.890 Other specified postprocedural states
CPT/HCPCS: 99284; 96360; 96361; 36415; 82550; 83735; 85025; 80053; 81001; 84484; 83605; 74022; 49083; J3490; J7121